=== PATIENT | female | born 1975 | race Asian ===

== ENCOUNTER 2023-03-08 13:14 | Emergency (ER) | payer SELFPAY ==
[2023-03-08 13:23] VITALS: BP 127/76; PULSE 76; RESP 16; TEMP 98.1; BMI 44.4
[2023-03-08] MEDS ORDERED: IBUPROFEN 400 MG TABLET (FP) PO ONE (13:57)
== END 2023-03-08 14:50 | disposition home or self-care (01) ==
LOC: JERFT 13:14
DX: M25.561 Pain in right knee (principal)
CPT/HCPCS: 73562-TC-RT-FY; 99283-25